=== PATIENT | male | born 1945 | race Caucasian/White ===

== ENCOUNTER → 2016-09-29 | Outpatient (CLI) | payer OTHER, MEDICARE ==
[~2016-09-29] VITALS: Ht 185.4 cm; Wt 95.3 kg
[~2016-09-29] MED LIST: ASPIR 8181 MG PO; ASTEPRO205.5 MCG/ NS; ATENOLOL 50 MG50 M1 PO; AVAPRO 150 MG150 MG PO; AVAPRO300 MG; AZELAST NASAL137 MC1 NASAL; BENTYL 20 MG TA20 M1 PO; BIOTIN-D1 GM PO; CALCIUM +D & M1 EACH; CALCIUM 500 +1 EAC6 PO; CARAFATE 1 GM TA1 G1 PO; CARDURA4 MG PO; CO Q-1010 MG; COQ-10100 MG PO; COSAMIN DS CAP1 EAC1 PO; DOXYCYCLINE 10100 MG PO; EFFIENT10 MG PO; FELODIPINE ER10 MG PO; FENTANYL PA12 MCG/H1 TRANSDERM; FISH OIL 1,0001 EAC5 PO; FLAX OIL1000 MG; FLOMAX0.4 MG PO; FLONASE 0.05%50 MCG NASAL; GLUCOSAMINE &1 EACH PO; GLUCOSAMINE CH1 EACH PO; GLUCOSAMINE-CH1 EA33; GLUMETZA500 PO; HYDROCHLOROTH12.5 M1 PO; HYDROCHLOROTH12.5 MG; HYDROCHLOROTHIAZIDE PO; HYDROCODON-ACE1 EAC5 PO; HYOMAX-DT0.375 MG PO; MULTIVITAMINS PO; MULTIVITAMINS1 EAC7; NITROGLYCERIN0.4 MG SUBLING; NORCO 5-325 TA1 EACH PO; OMEPRAZOLE 20 M20 MG PO; PENTASA500 MG PO; PRAVACHOL20 MG PO; PRILOSEC20 MG PO; PROAIR HFA8.5 GM INH; PULMICORT FLE180 MCG INH; SINGULAIR 10 MG10 M1 PO; TENORMIN50 MG PO; VENTOLIN HFA 1818 GM INH; VITAMIN A8000 UNI1 PO; VITAMIN D-32000 UNIT PO; VITAMINC500 PO; WELCHOL 625 MG625 MG PO
--- NOTE | ~2016-09-29 | P ---
[facility] [place] [address] PROCEDURE REPORT Name: ALBAROCECILE STUART Room #: [facility].#: [id number] Admission: 09/29/16 Attend Phys: Cecile Rosales MD Discharge: Date of : 41 Report #: [id number] THIS REPORT FOR: //name// CC: Cecile Bajwa MD DATE OF SERVICE: 09/29/2016 BRIEF HISTORY: The patient is a 71-year-old male with a history of Crohn's disease. He had a recent bout of appendicitis. He presents for followup colonoscopy to evaluate for Crohn's disease. PREOPERATIVE DIAGNOSIS: History of ileitis secondary to Crohn's disease. POSTOPERATIVE DIAGNOSES: 1. A 7-8 mm rectal polyp. 2. Stricture of distal terminal ileum, benign appearing. 3. Diverticulosis coli, right and left colon. 4. Deformity of cecum, likely related to previous appendectomy. SPECIMEN: 1. Biopsy of ileal stricture. 2. Rectal polyp. ESTIMATED BLOOD LOSS: 3 mL. PROCEDURE: Colonoscopy to cecum and terminal ileum with snare polypectomy and biopsy. FINDINGS: Prior to propofol sedation, procedure of colonoscopy discussed with the patient as well as potential risks and its complications. He indicates he understands and desires to proceed. DESCRIPTION OF PROCEDURE: With the patient in left lateral decubitus position, digital examination was completed which revealed no abnormalities. Subsequently, the fintonic video colonoscope was introduced into the rectum, advanced under direct vision to the cecum. Done with minimal difficulty. The cecum was identified by the ileocecal valve and the appendiceal orifice. There was some deformity in the tip of the cecum, likely related to his appendectomy that was done several months ago. The ileocecal valve had normal overlying mucosa; however, it appeared to be in a persistent open position. No ulcers were seen on the ileocecal valve. The scope was advanced across the ileocecal valve and the distal segment of terminal ileum was inspected. The ileocecal valve was crossed and examination of distal terminal ileum revealed intact mucosa. Interestingly, I did not see ulcers or erosions today, which have been [facility] [address] [place] [address] PROCEDURE REPORT Name: CECILE IRVIN Room #: [facility].#: [id number] Admission: 09/29/16 Attend Phys: Cecile Rosales MD Discharge: Date of : 41 Report #: [id number] persistent on previous endoscopic evaluations. However, several centimeters up from the ileocecal valve, there was noted to be a benign appearing stricture. The mucosa was smooth. It was symmetrical. The mucosa was normal. No ulcers or erosions were seen. The lumen appeared to be of adequate size; however, the scope would not pass through the strictured area. Since there were stricturing, multiple biopsies were obtained. I do not see obvious inflammatory bowel disease. I did not see any evidence of a neoplasm. At that point, the scope was slowly withdrawn and careful circumferential views were obtained. Upon slow withdrawal of the scope, the prep was noted to be excellent. The mucosa was normal limits, normal vascular pattern, normal light reflex. As we withdrew the scope, a few scattered diverticula were seen in the proximal colon. There was somewhat more diverticular disease in the distal sigmoid colon. No polypoid lesions were seen until the rectum was reached. Rectal mucosa was normal; however, in the very distal rectum, there was a 7-8 mm sessile polyp, was removed by cold snare polypectomy and recovered. Scope was withdrawn. The patient tolerated the procedure well. CONDITION OF THE PATIENT UPON DISCHARGE: Following procedure, the patient drowsy, aroused, conversant and will be discharged home when fully ambulatory. INSTRUCTIONS TO THE PATIENT AND FAMILY AT THE TIME OF DISCHARGE: We will follow up on biopsies and pathology of the polyp today to make further recommendations. Again, I do not see evidence of active inflammatory bowel disease. He should continue his Pentasa. We will follow up on the path of polyp and if it is a tubular adenoma, he should return in 3 years; if there are any villous component to the pathology, 3 years would be indicated. We will have him return to see me in 6 months to monitor with regard to the stricture, but up to this point in time, he has been asymptomatic and no complaints of pain. Dilation was not done today as the patient is asymptomatic. However, that may be needed in the future. He will otherwise return to care of Dr. Fletcher Bajwa. <ELECTRONICALLY SIGNED> By: Cecile Rosales MD 09/30/16 1809 0928 1934 Cecile Rosales MD /nt
--- NOTE | ~2016-09-29 | S ---
[facility] [place] [address] SURGICAL PATH RPT PROCEDURE Name: ALBAROCECILE SADE Room #: [facility].#: [id number] Admission: 09/29/16 Date of : 41 Discharge: Report #: [id number] Path Case #: [id number] PATHOLOGY REPORT COLLECTION DATE: 09/29/2016 RECEIVED DATE: 09/30/2016 SUBMITTING PHYS: Dr. Cecile Rosales OTHER PHYS: Dr. Fletcher Bajwa SPECIMEN(S) RECEIVED: A.Biopsy ileo stricture B.Polypectomy rectal polyps * * * * * * * * * * * * FINAL DIAGNOSIS: A. Small intestine mucosa "biopsy ileo stricture": - Mild to moderate chronic active ileitis with focal cryptitis and with lamina propria, chronic inflammation. (See comment) B. Colonic mucosa, polypectomy rectal polyps: - Fragments of tubular adenomas. - There is no evidence of high grade dysplasia or malignancy. COMMENT: The findings are consistent with the history of inflammatory bowel disease. Findings can also be seen with infectious etiology. There is no evidence of dysplasia or malignancy (SHA:halina; d/t: 10/03/2016) PATHOLOGIST: Tino Deleon M.D. REPORT ELECTRONICALLY SIGNED BY: Tino Deleon M.D. DATE/TIME: 10/04/2016 13:28 * * * * * * * * * * * * GROSS PATHOLOGY: A. Received in formalin labeled "Cecile Irvin and bx ileo stricture," are 6 segments of thao soft tissue measuring 2.2 x 0.3 x 0.2 cm in aggregate dimensions and ranging from 0.2 to 0.4 cm in maximum dimension. The specimen is submitted entirely in cassette A1. B. Received in formalin labeled "Cecile Irvin and rectal polyps," are 2 segments of thao soft tissue measuring 1.3 x 0.5 x 0.3 cm in aggregate dimensions and measuring 0.6 and 0.7 cm in maximum dimension. The specimen is submitted entirely in cassette B1. (TTL; 09/30/2016) [address] [address] SURGICAL PATH RPT PROCEDURE Name: CECILE IRVIN SADE Room #: [facility].#: [id number] Admission: 09/29/16 Date of : 41 Discharge: Report #: [id number] Path Case #: [id number] CLINICAL HISTORY: Pre-op diagnosis: History of Crohn's Post-op diagnosis: Rectal polyp, benign stricture of ileum, diverticulosis INITIAL CPT CODE(S): A; 60234 B; 39030 Professional services performed by [facility] at [address] , [place] [address] Technical services performed by [facility] at [address] [place] [address], [facility] [address] [address]. [facility] [address] [address] PHONE: [phone] DIRECTOR: Kuldeep Anaya M.D. * * * END OF REPORT * * *
--- NOTE | ~2016-09-29 | EKG ---
[place] [address] [facility] [facility] [place] [address] ELECTROCARDIOGRAM REPORT Name: ALBAROCECILE [id number] Admission: 09/29/16 Attend Phys: Cecile Rosales MD Discharge: Date of : 41 Report #: [id number] THIS REPORT FOR: //name// [facility] Test Date: 2016-09-29 Test Time: 08:32:55 Pat Name: CECILE IRVIN Department: Room: Gender: M Bulk Delivery Driver: MICHELE : 1945 Requested By: Cecile Rosales Order Number: [id number] MD: Oren Verdugo Measurements Intervals [place] Rate: 73 P: 62 ME: 191 QRS: -81 QRSD: 160 T: 50 QT: 438 QTc: 483 Interpretive Statements Sinus rhythm Left anterior hemiblock Right bundle branch block No previous ECG available for comparison Electronically Signed On 09-30-2016 9:26:13 CDT by Oren Verdugo [email or web address] <ELECTRONICALLY SIGNED> By: Oren Verdugo MD, [facility] 09/30/16 0926 0832 1 Oren Verdugo MD, FACC /EPI
== END | disposition home or self-care (01) ==
LOC: GI 08-01 11:13
DX: D12.8 Benign neoplasm of rectum (principal); K50.90 Crohn's disease, unspecified, without complications; K62.89 Other specified diseases of anus and rectum; K57.30 Diverticulosis of large intestine without perforation or abscess without bleeding; I10 Essential (primary) hypertension; E78.00 Pure hypercholesterolemia, unspecified; G47.33 Obstructive sleep apnea (adult) (pediatric); Z87.891 Personal history of nicotine dependence; K21.9 Gastro-esophageal reflux disease without esophagitis; E11.9 Type 2 diabetes mellitus without complications; Z95.818 Presence of other cardiac implants and grafts
CPT/HCPCS: 62110; 62900

== ENCOUNTER → 2017-03-01 | Outpatient (CLI) | payer OTHER, MEDICARE ==
[2017-03-01 12:57] LABS: CREATININE 0.8 mg/dL (0.7-1.3)
== END ==
LOC: CAT 12:04
PROVIDERS: Nurse Practitioner
DX: R10.32 Left lower quadrant pain (principal); Z87.19 Personal history of other diseases of the digestive system

== ENCOUNTER → 2018-01-04 | Outpatient (CLI) | payer OTHER, MEDICARE | LOC: RAD 09:45 | DX: M47.816 Spondylosis without myelopathy or radiculopathy, lumbar region (principal); M46.06 Spinal enthesopathy, lumbar region ==

== ENCOUNTER → 2018-01-11 | Outpatient (CLI) | payer OTHER, MEDICARE | LOC: RAD 11:29 | DX: G47.33 Obstructive sleep apnea (adult) (pediatric) (principal); M47.814 Spondylosis without myelopathy or radiculopathy, thoracic region; M41.84 Other forms of scoliosis, thoracic region; Z79.899 Other long term (current) drug therapy ==

== ENCOUNTER → 2020-03-27 | Outpatient (CLI) | payer OTHER, MEDICARE | LOC: LAB 14:00 | PROVIDERS: ATTEND Specialist | DX: Z01.812 Encounter for preprocedural laboratory examination (principal); Z20.828 Contact with and (suspected) exposure to other viral communicable diseases ==

== ENCOUNTER → 2020-04-01 | Outpatient (CLI) | payer OTHER, MEDICARE ==
[~2020-04-01] VITALS: Ht 185.4 cm; Wt 93.0 kg
[~2020-04-01] MED LIST changes: +GAVISCON ES CH1 EAC1 PO; +TYLENOL ARTHRI650 MG PO
--- NOTE | 2020-04-04 14:53 | P ---
[facility] [place] [address] PROCEDURE REPORT Name: CECILE IRVIN Room #: [facility] Zac#: [id number] Admission: 04/01/20 Attend Phys: Grover Sinclair Discharge: Date of : 41 Report #: [id number] THIS REPORT FOR: cc: Fletcher Bajwa MD, Neal A. MD McElhinney, Christian C. MD ~ CC: Grover Bajwa MD DATE OF SERVICE: 04/01/2020 PROCEDURE PERFORMED: Colonoscopy. HISTORY OF PRESENT ILLNESS: The patient is a 74-year-old male with a history of Crohn's disease diagnosed approximately 20 years ago. He has been on long-term Pantoza. He is doing well. Last colonoscopy was 3 years ago. Polyps were noted at that time. He also has a known benign stricture of the terminal ileum. He denies any symptoms. No family history of colon cancer. DESCRIPTION OF PROCEDURE: The risks and benefits of the procedure were explained to the patient, those risks including but not limited to bleeding, perforation and the risk of sedation. He understood these risks and gave informed consent. Sedation was given using propofol per anesthesia. Next, a digital rectal exam was initially performed, which was normal. Next, using a standard Olympus colonoscope, the scope was placed in the patient's anus and advanced under direct vision to the cecum. The overall prep was excellent. The cecum and ileocecal valve were normal in appearance. The terminal ileum was intubated. There was again a benign mild stricture noted in the terminal ileum. No evidence of ulcerations or inflammation. The scope was then brought back into the patient's colon. A few scattered diverticula noted in the ascending colon, otherwise normal. The transverse and descending colon were normal. Multiple diverticula were noted in the sigmoid colon, no evidence of inflammation, otherwise normal. The rectal mucosa was normal. On retroflexion, small nonbleeding internal hemorrhoids were seen. Scope was then withdrawn and the procedure terminated. The patient tolerated the procedure well. IMPRESSION: 1. Small stricture in the terminal ileum again noted. 2. Sigmoid diverticulosis. 3. Internal hemorrhoids. 4. Otherwise, normal colonoscopy. RECOMMENDATIONS: 1. Continue Pantoza. 2. Repeat colonoscopy in [address] [address] PROCEDURE REPORT Name: CECILE IRVIN Room #: [facility] Frank#: [id number] Admission: 04/01/20 Attend Phys: Grover Sinclair Discharge: Date of : 41 Report #: [id number] Thank you for allowing me to participate in his care. <ELECTRONICALLY SIGNED> By: Grover Zamora MD 04/04/20 1453 1217 2317 Grover Zamora MD /nt
== END | disposition home or self-care (01) ==
LOC: GI 09:36
PROVIDERS: ATTEND Specialist
DX: Z12.11 Encounter for screening for malignant neoplasm of colon (principal); K57.30 Diverticulosis of large intestine without perforation or abscess without bleeding; K64.8 Other hemorrhoids; I10 Essential (primary) hypertension; E78.00 Pure hypercholesterolemia, unspecified; E11.9 Type 2 diabetes mellitus without complications; G47.30 Sleep apnea, unspecified; K21.9 Gastro-esophageal reflux disease without esophagitis; Z87.891 Personal history of nicotine dependence; Z79.899 Other long term (current) drug therapy; Z98.890 Other specified postprocedural states; Z79.84 Long term (current) use of oral hypoglycemic drugs; Z86.010 Personal history of colon polyps
CPT/HCPCS: 62110; 62900

== ENCOUNTER → 2020-05-13 | Outpatient (CLI) | payer OTHER, MEDICARE | LOC: RAD 09:44 | PROVIDERS: ATTEND Pediatrics | DX: J98.11 Atelectasis (principal); R06.02 Shortness of breath ==